=== PATIENT | male | born 1960 | race Caucasian/White ===

== ENCOUNTER → 2020-01-30 | Emergency (ER) | payer OTHER ==
[~2020-01-30] MED LIST: Morphine 2 MG/ML SYRINGE ONE; Morphine 4 MG/ML VIAL ONE
== END ==
LOC: NAV ERS 16:58
DX: M54.5 Low back pain (principal); E11.9 Type 2 diabetes mellitus without complications; E78.5 Hyperlipidemia, unspecified; E78.00 Pure hypercholesterolemia, unspecified; I10 Essential (primary) hypertension; M10.9 Gout, unspecified; E66.9 Obesity, unspecified; I25.10 Atherosclerotic heart disease of native coronary artery without angina pectoris; Z87.891 Personal history of nicotine dependence; Z79.84 Long term (current) use of oral hypoglycemic drugs; Z79.82 Long term (current) use of aspirin; Z79.899 Other long term (current) drug therapy
CPT/HCPCS: 96372; 99283; J2270

== ENCOUNTER 2022-05-26 15:24 | Emergency (ER) | payer OTHER, MEDICARE | END 2022-05-26 16:40 | disposition home or self-care (01) | LOC: NAV ERS 15:24 | DX: S23.41XA Sprain of ribs, initial encounter (principal); E11.9 Type 2 diabetes mellitus without complications; E78.00 Pure hypercholesterolemia, unspecified; I10 Essential (primary) hypertension; Z87.891 Personal history of nicotine dependence; Z79.899 Other long term (current) drug therapy; X58.XXXA Exposure to other specified factors, initial encounter ==

== ENCOUNTER 2022-11-04 13:28 | Emergency (ER) | payer OTHER ==
[2022-11-04] MEDS ORDERED: Ondansetron PF 4 MG/2 ML Vial ONE (15:25)
[2022-11-04] MEDS ORDERED: Morphine 4 MG/ML VIAL ONE (15:25)
[2022-11-04] MEDS ORDERED: Ondansetron ODT 4 MG TAB ONE (15:29)
== END 2022-11-04 15:50 | disposition home or self-care (01) ==
LOC: NAV ERS 13:28
DX: S52.121A Displaced fracture of head of right radius, initial encounter for closed fracture (principal); S42.451A Displaced fracture of lateral condyle of right humerus, initial encounter for closed fracture; I25.10 Atherosclerotic heart disease of native coronary artery without angina pectoris; E11.9 Type 2 diabetes mellitus without complications; E78.00 Pure hypercholesterolemia, unspecified; I10 Essential (primary) hypertension; M10.9 Gout, unspecified; E66.9 Obesity, unspecified; W18.09XA Striking against other object with subsequent fall, initial encounter; Y93.01 Activity, walking, marching and hiking; Z87.891 Personal history of nicotine dependence; Z95.5 Presence of coronary angioplasty implant and graft; Z85.47 Personal history of malignant neoplasm of testis; Z79.899 Other long term (current) drug therapy
CPT/HCPCS: 96372; J2270; J2405; Q0162

== ENCOUNTER 2023-05-03 09:33 | Emergency (ER) | payer OTHER ==
[2023-05-03 10:03] LABS: #Eosinphils 0.1 thou/uL (0.0-0.7); #Lymphocytes 0.9 thou/uL (1.20-3.40); #Monocytes 0.4 thou/uL (0.11-0.59); %Basophils 0.2 % (0.0-1.0); %Eosinophils 0.9 % (0.0-10.0); %Neutrophils 80.8 % (42.0-75.0); Hematocrit 36.5 % (42.0-52.0); Hemoglobin 11.8 g/dL (14.0-18.0); Mean Corpuscular HGB CONC 32.2 g/dL (32.0-36.0); Mean Corpuscular Hemoglobin 29.8 pg (27.0-31.0); Mean Corpuscular Volume 92.3 fl (78.0-98.0); Mean Platelet Volume 6.2 fL (7.4-10.4); Platelet Count 220 10x3/uL (130-400); RBC Distribution Width 14.1 % (11.5-14.5); Red Blood Cell (RBC) Count 3.95 mill/uL (4.70-6.10); White Blood Cell (WBC) Count 7.4 10x3/uL (4.8-10.8)
[2023-05-03] MEDS ORDERED: Ketorolac Tromethamine 30 MG/ML VIAL ONE (10:08)
[2023-05-03] MEDS ORDERED: Ondansetron PF 4 MG/2 ML Vial ONE (10:08)
[2023-05-03 10:24] LABS: ALT (SGPT) 21 U/L (8-55); AST (SGOT) 12 U/L (5-34); Alkaline Phosphatase 54 U/L (40-110); BUN (Urea Nitrogen) 31 mg/dL (8.4-25.7); Bilirubin, Total 0.6 mg/dL (0.2-1.2); CK (CPK) 48 U/L (30-200); Calc. Creatinine Clearance 0 mL/min (70-130); Estimated GFR 53; Globulin 2.9 g/dL (2.4-3.5); Lipase 14 U/L (8-78); Magnesium 1.5 mg/dL (1.6-2.6); Protein, Total 7.2 g/dL (5.8-8.1)
[2023-05-03 10:40] LABS: Albumin 4.6 g/dL (3.4-4.8)
[2023-05-03 10:42] LABS: Chloride 106 mmol/L (98-107); Sodium 135 mmol/L (136-145)
[2023-05-03 10:43] LABS: Calcium 9.4 mg/dL (7.8-10.44); Potassium 5.1 mmol/L (3.5-5.1)
[2023-05-03 10:44] LABS: Glucose 162 mg/dL (80-115); PTT 25.9 sec (22.9-36.1); Prothrombin Time 13.3 sec (12.0-14.7)
[2023-05-03 10:45] LABS: Anion Gap 15 mmol/L (10-20)
[2023-05-03 10:47] LABS: Carbon Dioxide 16 mmol/L (23-31)
[2023-05-03] MEDS ORDERED: Magnesium 2 GM/50 ML BAG (IN WATER) ONE (10:59)
== END 2023-05-03 13:07 | disposition home or self-care (01) ==
LOC: NAV ERS 09:33
DX: R19.7 Diarrhea, unspecified (principal); I25.10 Atherosclerotic heart disease of native coronary artery without angina pectoris; E11.9 Type 2 diabetes mellitus without complications; E78.00 Pure hypercholesterolemia, unspecified; I10 Essential (primary) hypertension; Z87.891 Personal history of nicotine dependence; Z79.899 Other long term (current) drug therapy; Z79.82 Long term (current) use of aspirin; Z79.84 Long term (current) use of oral hypoglycemic drugs
CPT/HCPCS: 74177; 80053; 82550; 83690; 83735; 83880; 84484; 85025; 85610; 85730; 93005; 96365; 96375; J1885; J2405; J3475

== ENCOUNTER 2024-10-22 13:13 | Emergency (ER) | payer MEDICARE, OTHER ==
[2024-10-22] MEDS ORDERED: Nitroglycerin 0.4 MG TAB 1 EACH ONE (13:22)
[2024-10-22] MEDS ORDERED: Aspirin Chewable 81 MG TAB ONE (13:33)
[2024-10-22 13:34] LABS: #Eosinophils 0.2 thou/uL (0.0-0.7); #Lymphocytes 2.3 thou/uL (1.20-3.40); #Monocytes 0.3 thou/uL (0.11-0.59); #Neutrophils 4.3 thou/uL (1.40-6.50); %Basophils 0.5 % (0.0-1.0); %Eosinophils 2.6 % (0.0-10.0); %Lymphocytes 32.5 % (21.0-51.0); %Monocytes 4.8 % (0.0-10.0); %Neutrophils 59.6 % (42.0-75.0); Hematocrit 44.3 % (42.0-52.0); Hemoglobin 13.7 g/dL (14.0-18.0); Mean Corpuscular Hemoglobin 28.5 pg (27.0-31.0); Mean Platelet Volume 6.9 fL (7.4-10.4); Platelet Count 294 10x3/uL (130-400); RBC Distribution Width 13.6 % (11.5-14.5); Red Blood Cell (RBC) Count 4.81 mill/uL (4.70-6.10); White Blood Cell (WBC) Count 7.2 10x3/uL (4.8-10.8)
[2024-10-22 13:49] LABS: ALT (SGPT) 25 U/L (Less than 45); Albumin 4.4 g/dL (3.1-4.5); Alkaline Phosphatase 44 U/L (40-110); Anion Gap 17 mmol/L (10-20); BUN (Urea Nitrogen) 22 mg/dL (8.4-25.7); Bilirubin, Total 0.5 mg/dL (0.3-1.2); Calc. Creatinine Clearance 0 mL/min (70-130); Carbon Dioxide 20 mmol/L (23-31); Chloride 109 mmol/L (98-107); Estimated GFR 47; Globulin 2.8 g/dL (2.4-3.5); Glucose 239 mg/dL (80-115); Potassium 4.6 mmol/L (3.5-5.1); Protein, Total 7.2 g/dL (5.8-8.1); Sodium 141 mmol/L (136-145)
[2024-10-22 14:17] LABS: AST (SGOT) 19 U/L (11-34)
[2024-10-22 14:17] LABS: Troponin I 0.021 ng/mL (< 0.028)
== END 2024-10-22 14:46 | disposition left against medical advice (07) ==
LOC: NAV ERS 13:13
DX: R07.9 Chest pain, unspecified (principal); N28.9 Disorder of kidney and ureter, unspecified; I25.10 Atherosclerotic heart disease of native coronary artery without angina pectoris; E11.9 Type 2 diabetes mellitus without complications; I10 Essential (primary) hypertension; E78.00 Pure hypercholesterolemia, unspecified; Z79.82 Long term (current) use of aspirin; Z95.5 Presence of coronary angioplasty implant and graft; Z79.02 Long term (current) use of antithrombotics/antiplatelets; Z79.85 Long-term (current) use of injectable non-insulin antidiabetic drugs; Z79.899 Other long term (current) drug therapy; Z87.891 Personal history of nicotine dependence; Z79.84 Long term (current) use of oral hypoglycemic drugs
CPT/HCPCS: 71045; 80053; 84484; 85025; 93005; 94760